=== PATIENT | male | born 1970 | race Caucasian/White ===

== ENCOUNTER 2021-06-30 22:51 | Emergency (ER) | payer BC ==
[2021-06-30] MEDS ORDERED: Tamsulosin 0.4 MG Cap.ER PO ONE (22:55)
[2021-06-30] MEDS ORDERED: Sodium Chloride 0.9% 1,000 ML IV ONE (22:57)
[2021-06-30] MEDS ORDERED: Ketorolac 15 MG/ML SDV IM ONE (22:57)
[2021-06-30] MEDS ORDERED: Ketorolac 15 MG/ML SDV IVPUSH PRN (23:11)
[2021-06-30] MEDS ORDERED: Ondansetron 4 MG/2 ML SDV IVPUSH ONE (23:13)
--- NOTE | 2021-06-30 23:32 | EDM.PDOC ---
ED [facility] GENERAL MEDICAL PROBLEM - General Chief Complaint: Genitourinary Problem Stated Complaint: Flank pain Time Seen by Provider: 06/30/21 23:16 Source of Information: Reports: Patient History Limitations: Reports: No Limitations - History of Present Illness INITIAL COMMENTS - FREE TEXT/NARRATIVE: Sudden sharp left flank pain around 9:30pm tonight. Had dull left low back pain earlier today today that he thought might be due to a sore muscle. Has made its way around left side and is now in suprapubic area. Feels like kidney stone he passed more than 10 years ago. Also nausea/emesis with pain. No diarrhea. No hematuria. No fevers/chills. No other complaints. - Related Data Allergies Allergy/AdvReac Type Severity Reaction Status Date / Time No Known Allergies Allergy Verified 06/30/21 22:55 Home Meds: Home Meds Ondansetron [Zofran ODT] 4 mg PO Q6H PRN #6 tab.dis 07/01/21 [Rx] Tamsulosin [Tamsulosin 24 Hr] 0.4 mg PO DAILY #15 cap.er 07/01/21 [Rx] Past Medical History Genitourinary History: Reports: Renal Calculus ED ROS GENERAL - Review of Systems Review Of Systems: Comprehensive ROS is negative, except as noted in HPI. ED EXAM, GENERAL - Physical Exam Exam: See Below Exam Limited By: No Limitations General Appearance: Moderate Distress Eye Exam: Bilateral Eye: EOMI, PERRL Ears: Hearing Grossly Normal Nose: No: Nasal Deformity, Nasal Swelling, Nasal Drainage Throat/Mouth: Normal Lips, Normal Voice, No Airway Compromise Head: Atraumatic, Normocephalic Neck: Supple, Non-Tender, Full Range of Motion Respiratory/Chest: No Respiratory Distress, Lungs Clear, Normal Breath Sounds, No Accessory Muscle Use, Chest Non-Tender Cardiovascular: Regular Rate, Rhythm GI/Abdominal: Soft, Other (mild tenderness left lower abdomen near suprapubic area. ). No: Guarding, Rigid, Rebound (Male) Exam: Deferred Rectal (Males) Exam: Deferred Back Exam: No: CVA Tenderness (L), CVA Tenderness (R), Muscle Spasm, Paraspinal Tenderness, Vertebral Tenderness Extremities: Normal Range of Motion, Normal Capillary Refill Neurological: Alert, Oriented, Normal Cognition, Normal Gait, No Motor/Sensory Deficits Psychiatric: Anxious Skin Exam: Warm, Dry, Intact, Normal Color Course - Vital Signs Last Recorded V/S: Last Vital Signs Temp Pulse 72 06/30/21 22:53 Resp 18 06/30/21 22:53 BP 135/89 06/30/21 22:53 Pulse Ox 100 06/30/21 22:53 - Orders/Labs/Meds Orders: Active Orders 24 hr Category Date Time Status Abdomen wo Cont [CT] Stat Exams 06/30/21 23:17 Taken CTA Abd Pelv w Cont [CT] Stat Exams 06/30/21 22:58 Stop Req Labs: Laboratory Tests 06/30/21 06/30/21 06/30/21 Range/Units 22:56 23:10 23:10 WBC 9.0 (4.0-10.2) K/uL RBC 4.95 (4.33-5.41) M/uL Hgb 15.3 (13.1-16.8) g/dL Hct 43.4 (39.0-49.0) % MCV 87.7 (84.0-98.0) fL MCH 30.9 (28.2-33.3) pg MCHC 35.3 (31.7-36.0) g/dL RDW 12.5 (11.2-14.1) % Plt Count 177 (150-350) K/uL Neut % (Auto) 66.7 (45.0-80.0) % Lymph % (Auto) 22.6 (10.0-50.0) % Armstrong % (Auto) 9.1 (2.0-14.0) % Eos % (Auto) 1.3 (0.0-5.0) % Baso % (Auto) 0.3 (0.0-2.0) % Neut # (Auto) 6.00 (1.40-7.00) K/uL Lymph # (Auto) 2.04 (0.50-3.50) K/uL Armstrong # (Auto) 0.82 (0.00-1.00) K/uL Eos # (Auto) 0.12 (0.00-0.50) K/uL Baso # (Auto) 0.03 (0.00-0.20) K/uL Sodium 143 (136-145) mmol/L Potassium 3.7 (3.5-5.1) mmol/L Chloride 106 (98-107) mmol/L Carbon Dioxide 26.2 (21.0-32.0) mmol/L Anion Gap 10.8 (7-15) meq/L BUN 18 (7-18) mg/dL Creatinine 1.45 H (0.51-1.17) mg/dL Est Cr Clr Drug Dosing TNP Estimated GFR (MDRD) 52 mL/min Glucose 122 H (70-99) mg/dL Calcium 8.9 (8.5-10.1) mg/dL Total Bilirubin 0.5 (0.2-1.0) mg/dL AST 16 (15-37) U/L ALT 26 (12-78) U/L Alkaline Phosphatase 81 (46-116) IU/L Total Protein 7.0 (6.4-8.2) g/dL Albumin 4.0 (3.4-5.0) g/dL Specimen Type Urinvoid Urine Color Yellow Urine Appearance Clear Urine pH 5.5 (5.0-9.0) Ur Specific [place] >= 1.030 (1.005-1.030) Urine Protein 30 H (NEGATIVE) mg/dL Urine Glucose (UA) Negative (NEGATIVE) mg/dL Urine Ketones Trace H (NEGATIVE) mg/dL Urine Occult Blood Large H (NEGATIVE) Urine Nitrite Negative (NEGATIVE) Urine Bilirubin Negative (NEGATIVE) Urine Urobilinogen 0.2 (0.2-1.0) E.U./dL Ur Leukocyte Esterase Negative (NEGATIVE) Urine RBC 75-100 H /HPF Urine WBC 0-5 /HPF Ur Epithelial Cells Rare /LPF Urine Bacteria Not seen (NONE TO FEW) /HPF Urine Mucus Few H (NEGATIVE) /LPF Meds: Medications Discontinued Medications Generic Name Dose Route Start Last Admin Trade Name Freq PRN Reason Stop Dose Admin Hydromorphone HCl 0.5 mg 07/01/21 00:22 07/01/21 00:29 Hydromorphone 0.5 Mg/0.5 Ml Syringe IVPUSH 07/01/21 00:23 0.5 mg ONETIME ONE Administration Sodium Chloride 1,000 mls @ 999 mls/hr 06/30/21 22:57 07/01/21 00:28 Normal Saline IV 06/30/21 23:57 999 mls/hr .BOLUS ONE Administration Ketorolac Tromethamine 15 mg 06/30/21 22:57 06/30/21 23:10 Ketorolac 15 Mg/Ml Sdv IM 06/30/21 22:58 Not Given ONETIME ONE Ketorolac Tromethamine 15 mg 06/30/21 23:11 06/30/21 23:12 Ketorolac 15 Mg/Ml Sdv IVPUSH 07/05/21 23:11 15 mg Q6H PRN Administration pain Ondansetron HCl 4 mg 06/30/21 23:13 06/30/21 23:14 Ondansetron 4 Mg/2 Ml Sdv IVPUSH 06/30/21 23:14 4 mg ONETIME ONE Administration Promethazine HCl 25 mg 07/01/21 00:25 07/01/21 00:31 Promethazine 25 Mg/Ml Sdv IM 07/01/21 00:26 25 mg ONETIME ONE Administration Tamsulosin HCl 0.8 mg 06/30/21 22:55 06/30/21 23:02 Tamsulosin 0.4 Mg Cap.Er PO 06/30/21 22:56 0.8 mg ONETIME ONE Administration - Re-Assessments/Exams Free Text/Narrative Re-Assessment/Exam: 06/30/21 23:31 Labs ordered. IV access obtained. Patient received Toradol/Zofran and PO Flomax. IV NS bolus ordered in addition to noncontrast CT of abdomen/pelvis. 07/01/21 14:39 CT confirmed 3-4mm near left UVJ. Minimal hydro. Patient feeling better after receiving small dose of Dilaudid. Also received Phenergan after additional nausea and emesis. He wished to be discharged and go home instead of staying and receiving additional IV fluids/observation. Rx for Zofran and Flomax dispensed. Patient received a bottle of Toradol to take 1 every 6 hours for pain. Precautions reviewed. To strain urine. Follow up as needed if symptoms do not improve within a day or two or if they suddenly worsen. Departure - Departure Time of Disposition: 01:00 Disposition: Home, Self-Care 01 Condition: Good Clinical Impression: Kidney stone - Discharge Information *PRESCRIPTION DRUG MONITORING PROGRAM REVIEWED*: Not Applicable *COPY OF PRESCRIPTION DRUG MONITORING REPORT IN PATIENT CORRINE: Not Applicable Prescriptions: Tamsulosin [Tamsulosin 24 Hr] 0.4 mg PO DAILY #15 cap.er Ondansetron [Zofran ODT] 4 mg PO Q6H PRN #6 tab.dis PRN Reason: Nausea Instructions: Ondansetron tablets, Ketorolac Injection, Ondansetron injection, Hydromorphone injection, Kidney Stones, [id number], Tamsulosin capsules, Ketorolac Oral Tablets Referrals: PCP,None [Primary Care Provider] - Forms: ED Department Discharge Additional Instructions: Take Toradol 1 tab every 6 hours until stone passes. Do not take any other NSAIDs while taking Toradol (Ibuprofen/aleve) Stay hydrated. Take Flomax daily until stone passes. Follow up as needed if you have further problems. Sepsis Event Note (ED) - Evaluation Sepsis Screening Result: No Definite Risk - My Orders Last 24 Hours: My Active Orders 06/30/21 22:58 CTA Abd Pelv w Cont [CT] Stat 06/30/21 23:17 Abdomen wo Cont [CT] Stat - Assessment/Plan Last 24 Hours: My Active Orders 06/30/21 22:58 CTA Abd Pelv w Cont [CT] Stat 06/30/21 23:17 Abdomen wo Cont [CT] Stat
[2021-06-30 23:33] LABS: ANION GAP 10.8 meq/L (7-15); CHLORIDE,CL 106 mmol/L (98-107); SODIUM,NA 143 mmol/L (136-145)
[2021-07-01] MEDS ORDERED: HYDROmorphone 0.5 MG/0.5 ML Syringe IVPUSH ONE (00:22)
[2021-07-01] MEDS ORDERED: Promethazine 25 MG/ML SDV IM ONE (00:25)
== END 2021-07-01 01:05 | disposition home or self-care (01) ==
LOC: LL.ED 22:51
DX: N13.2 Hydronephrosis with renal and ureteral calculous obstruction (principal)
CPT/HCPCS: 36415; 74150; 80053; 81001; 85025; 96372; 96374; 96375; 99283; 99284-25; A9270-GY; J1170; J1885; J2405; J2550; J7030

== ENCOUNTER 2021-11-07 13:08 | Inpatient (IN) | payer BC ==
[2021-11-07] MEDS ORDERED: Ketorolac 30 MG/ML SDV IVPUSH ONE (13:20)
[2021-11-07] MEDS ORDERED: Promethazine 25 MG/ML SDV IM ONE (13:21)
[2021-11-07] MEDS ORDERED: Ondansetron 4 MG/2 ML SDV IVPUSH ONE (13:21)
[2021-11-07] MEDS: Sodium Chloride 0.9% 1,000 ML IV SCH ×3 (13:40→23:56)
[2021-11-07 14:01] LABS: ANION GAP 13.2 meq/L (7-15); CHLORIDE,CL 102 mmol/L (98-107); SODIUM,NA 139 mmol/L (136-145)
[2021-11-07] MEDS ORDERED: Morphine 2 MG/ML SYRINGE IVPUSH PRN (15:00)
[2021-11-07] MEDS: Ketorolac 30 MG/ML SDV IVPUSH PRN (20:53)
[2021-11-08] MEDS: Sodium Chloride 0.9% 1,000 ML IV SCH ×2 (08:31→16:38)
[2021-11-08] MEDS: Enoxaparin 40 MG/0.4 ML Syringe SUBCUT SCH (08:31)
[2021-11-08 08:43] LABS: CHLORIDE,CL 105 mmol/L (98-107); SODIUM,NA 139 mmol/L (136-145)
[2021-11-08 08:49] LABS: ANION GAP 13.1 meq/L (7-15)
[2021-11-08] MEDS ORDERED: Pantoprazole 40 MG Vial IVPUSH ONE (09:59)
[2021-11-08] MEDS: Ondansetron 4 MG/2 ML SDV IVPUSH PRN ×2 (16:49→23:08)
[2021-11-08] MEDS: Ketorolac 30 MG/ML SDV IVPUSH PRN (16:49)
[2021-11-08] MEDS: Sodium Chloride 0.9% 10 ML Syringe FLUSH PRN (16:50)
[2021-11-09] MEDS: Sodium Chloride 0.9% 1,000 ML IV SCH (00:22)
[2021-11-09] MEDS: Enoxaparin 40 MG/0.4 ML Syringe SUBCUT SCH (07:57)
[2021-11-09 08:20] LABS: CHLORIDE,CL 104 mmol/L (98-107); SODIUM,NA 139 mmol/L (136-145)
[2021-11-09 08:25] LABS: ANION GAP 13.9 meq/L (7-15)
[2021-11-09] MEDS: Sodium Chloride 0.9% 10 ML Syringe FLUSH PRN (09:04)
[2021-11-09] MEDS ORDERED: Magnesium Citrate Solution 296 ML Bottle PO ONE (10:46)
[2021-11-09] MEDS ORDERED: traMADol 50 MG Tab PO PRN (10:47)
[2021-11-09] MEDS ORDERED: Morphine 2 MG/ML SYRINGE IVPUSH PRN (10:47)
[2021-11-09] MEDS: Ondansetron 4 MG/2 ML SDV IVPUSH PRN (20:18)
[2021-11-09] MEDS ORDERED: Promethazine 25 MG/ML SDV IM PRN (21:36)
[2021-11-10] MEDS: Enoxaparin 40 MG/0.4 ML Syringe SUBCUT SCH (07:38)
[2021-11-10 08:43] LABS: SODIUM,NA 139 mmol/L (136-145)
[2021-11-10 08:48] LABS: ANION GAP 10.2 meq/L (7-15); CHLORIDE,CL 104 mmol/L (98-107)
== END 2021-11-10 13:55 | disposition home or self-care (01) | DRG 282 ==
LOC: LL.ED 13:08 → LL.MS 14:04 → OBSVTOIN 14:04
PROVIDERS: ADMIT Emergency Medicine; ATTEND Emergency Medicine
DX: K85.00 Idiopathic acute pancreatitis without necrosis or infection (principal); E66.9 Obesity, unspecified; Z20.822 Contact with and (suspected) exposure to COVID-19; Z68.34 Body mass index [BMI] 34.0-34.9, adult; Z87.442 Personal history of urinary calculi; Z98.890 Other specified postprocedural states
CPT/HCPCS: 36415; 74176; 76705; 80053; 80074; 81003; 82150; 83605; 83690; 85025; 96374; 96375; 99223; 99232; 99233; 99238; 99285-25; A9270-GY; C9113; J1650; J1885; J2270; J2405; J2550; J7030; U0002